=== PATIENT | male | born 1975 | race Caucasian/White ===

== ENCOUNTER 2023-05-13 15:21 | Emergency (ER) | payer OTHER, SELFPAY ==
[2023-05-13 16:04] VITALS: BP 131/95; PULSE 109; RESP 18; TEMP 36.4; O2SAT 98; BMI 24.4
--- NOTE | 2023-05-13 16:11 | CRLHL7_ITS ---
For Patients: As a result of the Century Cures Act, medical imaging exams and procedure reports are released immediately into your electronic medical record. You may view this report before your referring provider. If you have questions, please contact your health care provider. INDICATION: FALL 2 DAYS AGO, HX OF SEIZURES TECHNIQUE: CT head without contrast. COMPARISON: None. FINDINGS: Streak hardening artifact degrades fine detail evaluation. Right frontal encephalomalacia. Changes old craniotomy history of no intracranial hemorrhage. No discrete mass or mass effect. There is no midline shift. The basilar cisterns are patent. No hydrocephalus. The horn-white matter interface is otherwise preserved. No acute osseous abnormality. No extracalvarial soft tissue abnormality. The mastoid air cells are clear. The paranasal sinuses are well-aerated. The visualized portions of the orbits and globes are unremarkable. IMPRESSION: No acute intracranial process per unenhanced head CT. Please note that all CT scans at this facility use dose modulation, iterative reconstruction, and/or weight-based dosing when appropriate to reduce radiation dose to as low as reasonably achievable. Dictated by Corey Linn MD @ 05/13/2023 5:56:22 PM (Electronically Signed)
--- NOTE | 2023-05-13 16:54 | ED.GENADULT ---
HPI - General Adult General Chief complaint: Fall/Minor Trauma Stated complaint: seizure this morning Time Seen by Provider: 05/13/23 16:53 History of Present Illness HPI narrative: Patient reports 2.5 weeks of increase in seizure activity. Has had several falls due to this. Has communicated with Dr. Mata through [facility] who has recommended taking prescribed medications as usual as patient reports missing a couple doses recently but wanted him to have heat CT due to fall two days ago where he fell and hit head. Has bruising behind left ear and ringing and crackling in ear. 47-year-old man with history of epilepsy since childhood. 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 Accompanied by parents. Has been having increases in seizures lately. Has also had falls or and a couple of days ago resulted in falling and hitting his head. Reports that was recommended by neurologist to have CT imaging due to fall. He is not having any neck or back pain. He is seen by [facility]. Primary is a Dr. Mata. Says he is taking all medications. No new headaches. Often feels a little unsteady. No fevers. No visual disturbances otherwise. Poor sleep. Does admit to increased levels of stress/anxiety. Related Data Home Medications Medication Instructions Recorded Confirmed divalproex 500 mg tablet,extended 1,500 mg PO QPM 05/13/23 05/13/23 release 24 hr felbamate 600 mg tablet 600 mg PO .COMPLEX 05/13/23 05/13/23 lacosamide 100 mg tablet mg DIRECTED 05/13/23 Allergies Allergy/AdvReac Type Severity Reaction Status Date / Time amoxicillin Allergy Intermediate Unknown Verified 05/13/23 16:03 Review of Systems Status of ROS: Reports: 6 or more systems reviewed and unremarkable except as noted in History and below [facility] Medical History Seizure ?R56.9 - Unspecified convulsions (ICD-10) Social History Smoking Status: Never smoker How often do you have a drink containing alcohol: never AUDIT-C Alcohol total score: 0 Non-prescribed substance use: denies use Exam Narrative: Exam Narrative: Pleasant. NAD. Seems a little tired. Breathing easily. Cranial nerves 2-12 look to be intact. Accurate [id number]. Neck is supple nontender. Back also nontender. Heart in elevated rate but regular rhythm. Skin is warm and dry. There is a bruising behind his left ear consistent with traumatic impact. Some nasopharyngeal congestion and looks like a bubble in the left TM I think suggesting some fluid. Right TM unremarkable. No inflammation in either. Extremities are well perfused without edema. Extremities with good strength. On reassessment later I am in abrasion conversation and Gerry says ?here it comes ? at which point I witnessed conscious seizure-like activity lasting approximately a minute where head turned to left with saccadic eye movement. Able to engage in conversation during this time. No compromise of airway. Some mild spasming of the upper extremities and feet as well. This is apparently typical seizure-like activity. Const: Vital Signs, click to edit/add: Vital Signs - 24 hr 05/13/23 16:04 Temperature 97.6 F Pulse Rate [Pulse Oximeter] 109 H Respiratory Rate 18 Blood Pressure [Ri ght Upper Arm] 131/95 H Pulse Oximetry 98 Documenting provider has reviewed patient's vital signs: yes Course Vital Signs Vital signs: Initial Vital Signs Temperature 97.6 F 05/13/23 16:04 Temperature Source Temporal Artery Scan 05/13/23 16:04 Pulse Rate 109 H 05/13/23 16:04 Respiratory Rate 18 05/13/23 16:04 Blood Pressure 131/95 H 05/13/23 16:04 Blood Pressure Mean 107 H 05/13/23 16:04 Pulse Oximetry 98 05/13/23 16:04 Vital Signs Temperature 97.6 F 05/13/23 16:04 Pulse Rate 109 H 05/13/23 16:04 Respiratory Rate 18 05/13/23 16:04 Blood Pressure 131/95 H 05/13/23 16:04 Pulse Oximetry 98 05/13/23 16:04 Temperature 97.6 F 05/13/23 20:00 Pulse Rate 99 05/13/23 20:00 Respiratory Rate 18 05/13/23 20:00 Blood Pressure 125/85 05/13/23 20:00 Pulse Oximetry 98 05/13/23 20:00 Medications Administered Medications: Discontinued Medications Generic Name Dose Route Start Last Admin Trade Name Freq PRN Reason Stop Dose Admin Clonazepam 1 mg 05/13/23 19:34 05/13/23 20:08 Clonazepam 0.5 Mg Tablet PO 05/13/23 19:35 Not Given ONCE ONE Clonazepam 0.5 mg 05/13/23 19:34 05/13/23 20:00 Clonazepam 0.5 Mg Tablet PO 05/13/23 19:35 0.5 mg ONCE ONE Administration Medical Decision Making MDM Narrative Medical decision making narrative: Given seizure medications and potential effects on liver and kidney. I think should check electrolytes and renal function and liver function. Also scan head as recommended. Certainly could be new bleed or other changes intracranially that might precipitate increased seizure activity. Would not get levels of antiepileptics back at this time. Head CT reviewed by me looks to show large area of encephalomalacia.. No evidence of acute bleed or other swelling. Radiology over-read as below INDICATION: FALL 2 DAYS AGO, HX OF SEIZURES TECHNIQUE: CT head without contrast. COMPARISON: None. FINDINGS: Streak hardening artifact degrades fine detail evaluation. Right frontal encephalomalacia. Changes old craniotomy history of no intracranial hemorrhage. No discrete mass or mass effect. There is no midline shift. The basilar cisterns are patent. No hydrocephalus. The horn-white matter interface is otherwise preserved. No acute osseous abnormality. No extracalvarial soft tissue abnormality. The mastoid air cells are clear. The paranasal sinuses are well-aerated. The visualized portions of the orbits and globes are unremarkable. IMPRESSION: No acute intracranial process per unenhanced head CT. I did discuss these findings with shipbuilding draftsperson for [facility]. It sounds as though there are some assumptions about medication dosing that Mr. Ruiz is not doing. I do not believe he has increased his lacosamide as recommended. And was revealed later in conversation he may not actually be taking one of the medications. He does however have clonazepam available. Does not sound as though he has never actually used it. After discussion I did order dose here. We discussed mechanisms/expectations of action. I believe then he declined ultimately to take it. Monitored without further event in the emergency department. Recommending close follow-up with [facility] and full discussion of cares and expectations. Send out antiepileptic levels are pending. See patient discharge plan Medical Records Medical records reviewed: Yes I reviewed the patient's medical records Lab Data Lab results reviewed: Yes I reviewed the patient's lab results Labs: Lab Results 05/13/23 05/13/23 05/13/23 Range/Units 17:25 17:25 17:25 WBC 9.60 (4.50-11.00) K/uL RBC 4.02 L (4.30-5.90) m/uL Hgb 13.3 L (13.5-17.5) gm/dL Hct 40.7 (37.0-53.0) % MCV 101 H (80-100) fL MCH 33 (26-34) pg MCHC 33 (32-36) gm/dL RDW Coeff of Veronica 14.2 (11.5-15.5) % Plt Count 332 (140-440) K/uL Neut % (Auto) 77.5 H (42.0-72.0) % Lymph % (Auto) 12.5 L (20-44) % Monroe % (Auto) 9.7 (0.0-11.0) % Eos % (Auto) 0.0 (0.0-7.0) % Baso % (Auto) 0.2 (0.0-3.0) % Neut # (Auto) 7.40 H (1.7-7.0) K/uL Lymph # (Auto) 1.20 (0.90-2.90) K/uL Monroe # (Auto) 0.90 (0.00-0.90) K/UL Eos # (Auto) 0.00 (0.00-0.50) K/uL Baso # (Auto) 0.02 (0.00-0.30) K/uL Abs Immat Gran (auto) 0.01 (0.00-0.30) K/uL Imm/Tot Granulo (auto) 0.1 % Sodium 140 (135-149) mmol/L Potassium 4.6 (3.6-5.1) mmol/L Chloride 102 (96-114) mmol/L Carbon Dioxide 28 (20-32) mmol/L Anion Gap 10 (7-15) mEq/L BUN 11 (5-24) mg/dL Creatinine 0.7 (0.5-1.5) mg/dL Estimated Creat Clear 147.43 Estimated GFR 114 ml/min Glucose 94 (60-115) mg/dL Calcium 10.1 (8.4-10.6) mg/dL Total Bilirubin 0.5 Cancelled (0.1-1.5) mg/dL Direct Bilirubin 0.1 Cancelled (0.0-0.5) mg/dL AST 28 (12-35) U/L ALT (4-50) U/L Alkaline Phosphatase (40-150) U/L C-Reactive Protein (0.5-1.0) mg/dL Total Protein (6.0-8.3) g/dL Albumin (3.3-5.0) g/dL Free/Total Valproic Acd 05/13/23 05/13/23 05/13/23 Range/Units 17:25 17:25 17:25 WBC (4.50-11.00) K/uL RBC (4.30-5.90) m/uL Hgb (13.5-17.5) gm/dL Hct (37.0-53.0) % MCV (80-100) fL MCH (26-34) pg MCHC (32-36) gm/dL RDW Coeff of Veronica (11.5-15.5) % Plt Count (140-440) K/uL Neut % (Auto) (42.0-72.0) % Lymph % (Auto) (20-44) % Monroe % (Auto) (0.0-11.0) % Eos % (Auto) (0.0-7.0) % Baso % (Auto) (0.0-3.0) % Neut # (Auto) (1.7-7.0) K/uL Lymph # (Auto) (0.90-2.90) K/uL Monroe # (Auto) (0.00-0.90) K/UL Eos # (Auto) (0.00-0.50) K/uL Baso # (Auto) (0.00-0.30) K/uL Abs Immat Gran (auto) (0.00-0.30) K/uL Imm/Tot Granulo (auto) % Sodium (135-149) mmol/L Potassium (3.6-5.1) mmol/L Chloride (96-114) mmol/L Carbon Dioxide (20-32) mmol/L Anion Gap (7-15) mEq/L BUN (5-24) mg/dL Creatinine (0.5-1.5) mg/dL Estimated Creat Clear Estimated GFR ml/min Glucose (60-115) mg/dL Calcium (8.4-10.6) mg/dL Total Bilirubin (0.1-1.5) mg/dL Direct Bilirubin (0.0-0.5) mg/dL AST Cancelled (12-35) U/L ALT 15 Cancelled (4-50) U/L Alkaline Phosphatase 87 Cancelled (40-150) U/L C-Reactive Protein 1.0 (0.5-1.0) mg/dL Total Protein 8.3 (6.0-8.3) g/dL Albumin (3.3-5.0) g/dL Free/Total Valproic Acd 05/13/23 05/13/23 Range/Units 17:25 17:25 WBC (4.50-11.00) K/uL RBC (4.30-5.90) m/uL Hgb (13.5-17.5) gm/dL Hct (37.0-53.0) % MCV (80-100) fL MCH (26-34) pg MCHC (32-36) gm/dL RDW Coeff of Veronica (11.5-15.5) % Plt Count (140-440) K/uL Neut % (Auto) (42.0-72.0) % Lymph % (Auto) (20-44) % Monroe % (Auto) (0.0-11.0) % Eos % (Auto) (0.0-7.0) % Baso % (Auto) (0.0-3.0) % Neut # (Auto) (1.7-7.0) K/uL Lymph # (Auto) (0.90-2.90) K/uL Monroe # (Auto) (0.00-0.90) K/UL Eos # (Auto) (0.00-0.50) K/uL Baso # (Auto) (0.00-0.30) K/uL Abs Immat Gran (auto) (0.00-0.30) K/uL Imm/Tot Granulo (auto) % Sodium (135-149) mmol/L Potassium (3.6-5.1) mmol/L Chloride (96-114) mmol/L Carbon Dioxide (20-32) mmol/L Anion Gap (7-15) mEq/L BUN (5-24) mg/dL Creatinine (0.5-1.5) mg/dL Estimated Creat Clear Estimated GFR ml/min Glucose (60-115) mg/dL Calcium (8.4-10.6) mg/dL Total Bilirubin (0.1-1.5) mg/dL Direct Bilirubin (0.0-0.5) mg/dL AST (12-35) U/L ALT (4-50) U/L Alkaline Phosphatase (40-150) U/L C-Reactive Protein (0.5-1.0) mg/dL Total Protein Cancelled (6.0-8.3) g/dL Albumin 4.7 Cancelled (3.3-5.0) g/dL Free/Total Valproic Acd See Scanned Report Discharge Plan Discharge Clinical Impression: Breakthrough seizure, Seizure disorder Patient Disposition: Home w/ Parent or Adult Condition: Stable Additional Instructions: I realize we will not see effect of the clonazepam here in the emergency department. If you need to, it would be okay to take another of your clonazepam tabs yet this evening. They do have on-call available through [facility]. You would be welcome to call them tomorrow to discuss further but per my conversation with them, I would anticipate them reaching out to you by the middle of this coming week to schedule a follow-up appointment sooner than your pending July appointment. Do consider discussing taking additional medication or other treatment options. Use clonazepam if you need to for breakthrough as prescribed. Return for persistent seizure. Laboratory levels of divalproex, felbamate and lacosamide are pending here. I would anticipate about a 2 day turn around for lacosamide and divalproex and 4-5 days for felbamate. You should be able to access my chart for these levels. We will also try to fax results to [facility]. Prescriptions: No Action felbamate 600 mg tablet 600 mg PO .COMPLEX Rx Instructions: 600 mg orally 2 tabs in AM, 1 tab in afternoon, 2.5 tabs before bed; divalproex 500 mg tablet extended release 24 hr 1,500 mg PO QPM lacosamide 100 mg tablet DIRECTED Follow Up/Referrals: Jasbir Arriaza MD [Referring] - Stand Alone Forms: [facility] Info Instructions
[2023-05-13 17:36] LABS: Basophils Absolute Auto 0.02 K/uL (0.00-0.30); Basophils Percent Auto 0.2 % (0.0-3.0); Hematocrit 40.7 % (37.0-53.0); Hemoglobin* 13.3 gm/dL (13.5-17.5); Immature Granulocytes Abs Auto 0.01 K/uL (0.00-0.30); Immature Granulocytes Pct Auto 0.1 %; Lymphocytes Percent Auto 12.5 % (20-44); Mean Corpuscular HGB Conc 33 gm/dL (32-36); Mean Corpuscular Hemoglobin 33 pg (26-34); Mean Corpuscular Volume 101 fL (80-100); Monocytes Percent Auto 9.7 % (0.0-11.0); Neutrophils Percent Auto 77.5 % (42.0-72.0); Platelet Count* 332 K/uL (140-440); RDW Coefficient of Variation % 14.2 % (11.5-15.5); Red Blood Count 4.02 m/uL (4.30-5.90)
[2023-05-13 17:53] LABS: Slide Review Reflex No
[2023-05-13 17:54] LABS: Albumin* 4.7 g/dL (3.3-5.0); Chloride* 102 mmol/L (96-114)
[2023-05-13 17:55] LABS: Potassium* 4.6 mmol/L (3.6-5.1); Sodium* 140 mmol/L (135-149)
[2023-05-13 17:57] LABS: Creatinine* 0.7 mg/dL (0.5-1.5); Est. Creatinine Clearance* 147.43; Estimated Glomerular Filt Rate 114 ml/min
[2023-05-13 17:58] LABS: Alanine Aminotransferase* 15 U/L (4-50); Alkaline Phosphatase* 87 U/L (40-150); Anion Gap 10 mEq/L (7-15); Aspartate Amino Transferase* 28 U/L (12-35); Bilirubin Direct* 0.1 mg/dL (0.0-0.5); Bilirubin Total* 0.5 mg/dL (0.1-1.5); Blood Urea Nitrogen* 11 mg/dL (5-24); Calcium* 10.1 mg/dL (8.4-10.6); Carbon Dioxide* 28 mmol/L (20-32); Glucose* 94 mg/dL (60-115); Total Protein* 8.3 g/dL (6.0-8.3)
--- OUTSIDE RECORDS SUMMARY | 2023-05-13 18:58 | XMS_ITS | Patient Health Record ---
Author Name Unknown Organization Unknown Care Team Providers Care Ax Survey Worker Name Role Phone Dre Cisneros MD Primary Care Provider Unavailab Farida Crump Unavailable [phone] Ronak Bateman MD Unavailable Unavailable ALLERGIES Allergen (clinical drug ingredient) Drug/Non Drug Allergy documented on EMR Reaction Allergy Type Onset Date Status amoxicillin Amoxicillin Unknown Drug Allergy Act richard RESULTS Component Value Reference Range Notes COMPREHENSIVE METABOLIC PANE L Reviewed date:08/27/2022 02:31:21 PM Interpretation: Performing Lab: Notes/Report: GLUCOSE UREA NITROGEN (BUN) CREATININE 0.71 eGFR NON-AFR. CITIZEN OF [place] eGFR BUN/CREATININE RATIO SODIUM 130 POTASSIUM CHLORIDE CARBON DIOXIDE CALCIUM PROTEIN, TOTAL ALBUMIN GLOBULIN ALBUMIN/GLOBULIN RATIO BILIRUBIN, TOTAL ALKALINE PHOSPHATASE 45 AST 44 ALT 18 EGFR CBC (INCLUDES DIFF/PLT) Reviewed date:08/27/2022 02:30:25 PM Interpretation: Performing Lab: Notes/Report: ABSOLUTE BASOPHILS ABSOLUTE EOSINOPHILS ABSOLUTE LYMPHOCYTES ABSOLUTE METAMYELOCYTES ABSOLUTE MONOCYTES ABSOLUTE PMN,ADULT BASOPHILS BLASTS CBC MORPHOLOGY COMMENT(S) EOSINOPHILS HEMATOCRIT HEMOGLOBIN IMMATURE GRAN IMMATURE GRAN ABSOLUTE LYMPHOCYTES MCH MCHC MCV METAMYELOCYTES MONOCYTES MORPHOLOGY MPV MYELOCYTES OTHER CELLS PLATELET COUNT PLATELET ESTIMATION PMN, ADULT PROMYELOCYTES RDW RED BLOOD CELL COUNT WHITE BLOOD CELL COUNT WHITE BLOOD CELL COUNT 3.7 RED BLOOD CELL COUNT HEMOGLOBIN 14.2 HEMATOCRIT MCV MCH MCHC RDW PLATELET COUNT 253 NEUTROPHILS BAND NEUTROPHILS ABSOLUTE BAND NEUTROPHILS METAMYELOCYTES ABSOLUTE METAMYELOCYTES MYELOCYTES ABSOLUTE MYELOCYTES PROMYELOCYTES ABSOLUTE PROMYELOCYTES ABSOLUTE NEUTROPHILS 1.9 LYMPHOCYTES REACTIVE LYMPHOCYTES ABSOLUTE LYMPHOCYTES MONOCYTES ABSOLUTE MONOCYTES EOSINOPHILS ABSOLUTE EOSINOPHILS BASOPHILS ABSOLUTE BASOPHILS BLASTS ABSOLUTE BLASTS NUCLEATED RBC ABSOLUTE NUCLEATED RBC COMMENT(S) MPV VALPROIC ACID Reviewed date:08/27/2022 02:32:10 PM Interpretation: Performing Lab: Notes/Report: VALPROIC ACID 105.0 FELBAMATE Reviewed date:08/27/2022 02:26:47 PM Interpretation: Performing Lab: Notes/Report: FELBAMATE 104 LACOSAMIDE, LC/MS/MS Reviewed date:08/27/2022 02:27:28 PM Interpretation: Performing Lab: Notes/Report: LACOSAMIDE, LC/MS/MS 6.4 REASON FOR REFERRAL No Information MEDICATIONS Medication SIG (Take, Route, Frequency, Duration) Notes Start Date End Date Status Vimpat 100 MG 1 tablet in the morning, 2 tablets in the evening orally as directed for 30 days Active Fiber - as directed Orally A ctive clonazePAM 0.5 MG 1 tablet sublinguall y PRN seizure lasting longer than 5 minutes. If seizure continues another 5 minutes, repeat dose. Max of 2 tablets within 24hrs 08/17/2021 Active Felbatol 600 mg 2 tablets am, 1 tablets midday and 2.5 tablets at bedtime Orally as directed for 30 day(s) Active Divalproex Sodium ER 500 3 tablets Orally at bedtime (q hs) for 30 days Active Briviact 100 MG 07/09/22: 0.5 tablet (50mg) BID x 1 week, then 1 tablet (100mg) BID x 1 week, then 1.5 tabs (150mg) BID x 1 week, then 2 tabs (200mg) Orally twice a day (bid) for 30 days 07/09/2022: refill not sent in because there is already supply at pharmacy awaiting pickup. 04/22/2022 Active VITAL SIGNS Height 73 in 07/09/2022 07/09/2022: Vit als deferred due to telemedicine visit. Encounters Encounter Location Date Provider Diagnosis [facility] [address] [place] [address] 07/09/2022 Farida Lema Other skilled nursing (current) drug therapy Z79.899 ; Localization-related (focal) (partial) idiopathic epilepsy and epileptic syndromes with seizures of localized onset, intractable, without status epilepticus G40.019 ; Counseling, unspecified Z71.9 ; Cannabis use, unspecified, uncomplicated F12.90 ; Phobic anxiety disorder, unspecified F40.9 and Stress, not elsewhere classified Z73.3 [facility] [address] [place] [address] 05/17/2022 Kinsk Sahaya [facility] [address] [place] [address] 05/17/2022 [place] Sahaya [facility] [address] [place] [address] 05/24/2022 K[place] Sahaya Other skilled nursing (current) drug therapy Z79.899 [facility] [address] [place] [address] 07/09/2022 K[place] Sahaya Other extermination inspector (current) drug therapy Z79.899 and Localization-related (focal) (partial) idiopathic epilepsy and epileptic syndromes with seizures of localized onset, intractable, without status epilepticus G40.019 [facility] [address] [facility] [place] [address] 07/14/2022 [place] Sahaya [facility] [address] [place] [address] 07/21[facility]22 [facility] [address] [place] [address] 08/05/2022 [place] Sahaya [facility] [address] [place] [address] 08/11/2022 K[place] Sahaya Other skilled nursing (current) drug therapy Z79.899 and Localization-related (focal) (partial) idiopathic epilepsy and epileptic syndromes with seizures of localized onset, intractable, without status epilepticus G40.019 [facility] [address] [place] [address] 08/16/2022 [place] Sahaya [facility] [address] [place] [address] 08/18/2022 [place] Sahaya [facility] [address] [place] [address] 08/23/2022 [place] Sahaya [facility] [address] [place] [address] 08/26/2022 [place] Sahaya [facility] [address] [place] [address] 09/25/2022 [place] Sahaya [facility] [address] [place] [address] 09/28/2022 [place] Sahaya Other skilled nursing (current) drug therapy Z79.899 [facility] [address] [place] [address] 10/26/2022 [place] Sahaya [facility] [address] [place] [address] 11/02/2022 K[place] Sahaya Other extermination inspector (current) drug therapy Z79.899 [facility] [address] [place] [address] 11/25/2022 [place] Sahaya [facility] [address] [place] [address] 12/03/2022 [place] Sahaya [facility] [address] [place] [address] 12/17/2022 [place] Sahaya [facility] [address] [place] [address] 02/10/2023 [place] Sahaya [facility] [address] [place] [address] 03/04/2023 K[place] Sahaya Other extermination inspector (current) drug therapy Z79.899 [facility] [address] [place] [address] 05/12/2023 [place] Sahaya [facility] [address] [place] [address] 05/12/2023 Kinsh[place] Sahaya ASSESSMENTS Encounter Date Diagnosis Assessment Notes Treatment Notes Treatment Clinical Notes 05/24/2022 Other extermination inspector (current) drug therapy (ICD-10 - Z79.899) 07/09/2022 Other extermination inspector (current) drug therapy (ICD-10 - Z79.899) 07/09/2022 Other extermination inspector (current) drug therapy (ICD-10 - Z79.899) 09/28/2022 Other extermination inspector (current) drug therapy (ICD-10 - Z79.899) 11/02/2022 Other extermination inspector (current) drug therapy (ICD-10 - Z79.899) 03/04/2023 Other skilled nursing (current) drug therapy (ICD-10 - Z79.899) 08/11/2022 Other skilled nursing (current) drug therapy (ICD-10 - Z79.899) 07/09/2022 Localization-related (focal) (partial) idiopathic epilepsy and epileptic syndromes with seizures of localized onset, intractable, without status epilepticus (ICD-10 - G40.019) 07/09/2022 Localization-related (focal) (partial) idiopathic epilepsy and epileptic syndromes with seizures of localized onset, intractable, without status epilepticus (ICD-10 - G40.019) 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 He has undergone RIGHT partial frontal lobectomy in 1988 at [facility], and has continued to have frequent seizures characterized by focal aware brief motor seizures with left-sided head turn and infrequent generalized convulsions. He continues on multiple antiseizure medications and has daily events. With his current medication regimen, he feels that felbamate has been most effective. Indeed after recent attempt to reduce felbamate dose due to perceived adverse effect, he had increased occurrence of seizures which returned back to baseline after the felbamate was resumed at the prior dose. Valproic acid has been the medication for a long timeframe. He feels that lacosamide may not have been additionally helpful and has given him adverse effects. He is interested in trying alternate antiseizure medication, but is not interested in adding on a fourth antiseizure medication. I had recently advised adding brivaracetam which she did not do because of the above reason. I have advised to taper off lacosamide by 100 mg every 7 days till completely off. He will also start brivaracetam 100 mg tablet, half tablet twice daily for 7 days and increase by such every 7 days to reach the target dose of 200 mg twice daily. I cannot Dr. Lauren have previously mentioned epilepsy surgery to him and he has been disinterested. Today he expressed some preliminary interest in VNS. It stems from the fact that his cousin who has epilepsy [maternal cousin, no other family member] has undergone VNS placement and has noted significant improvement. At the same time he is not to the extent that he will want to start the surgical evaluation. I discussed this in detail with the patient. I recommended a complete surgical evaluation and consideration of all available options including VNS. He ultimately decided that he wanted to pursue medication adjustment before considering surgical evaluation. Please also see below regarding his fear/phobia of surgery and steps to address it. I feel that addressing his fear or phobia of surgery would be the most important step before epilepsy surgery evaluation can be considered. I will get CBC, CMP, ammonia, reticulocyte count, drug levels. Alternative treatment options can include perampanel, pregabalin, eslicarbazepine, zonisamide, topiramate, cenobamate In addition to above, I also provided him prescription of Clonazepam 0.5 mg orally dissolvable tablet for when necessary use if he has more than 10 focal aware seizure in a single day, any seizure lasting 5 minutes or more, or any generalized convulsion. The dose may be repeated in 15 minutes if needed. Not more than 2 tablets in a day. 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 He has recently forgone Kidney stone surgery and suffered through the pain of same rather than undergoing surgery. He relates it to childhood right frontal lobectomy as being a traumatic experience. I feel this is a strong impediment in his quality of life, his ability to get appropriate health care, and also epilepsy surgery evaluation and consideration. I feel epilepsy surgery would be extremely helpful for him but before we pursue it, he should be treated for his phobia. I will set up care with psychology to address the same. The patient is agreeable. 07/09/2022 Stress, not elsewhere classified (ICD-10 - Z73.3) 07/09/2022 Other Services today were provided via telemedicine. During the visit, the patient, Gerry Ruiz, was at home in [place], [place], and the provider, Dr. Farida Lema, was located in [place], [place]. The televisit started at 1136AM and ended at 1200PM, for a duration of 24 minutes. 07/09/2022 Other VISIT SUMMARY: 1. MEDS: Continue Felbatol (felbamate) 1200mg in the morning, 600mg midday, and 1500mg in the evening, and continue Depakote ER 1500mg at bedtime. START Briviact as follows, using 100mg tablets (has already been sent to your pharmacy, please command post superintendent as soon as possible!) WEEK 1: 50mg (0.5 tablet) twice daily. WEEK 2: 100mg (1 tablet) twice daily. WEEK 3: 150mg (1.5 tablet) twice daily. WEEKS 4 and onward: 200mg (2 tablets) twice daily. DISCONTINUE Vimpat (lacosamide) as follows: WEEK 1: 100mg twice daily. WEEK 2: 100mg once daily. WEEKS 3 and onward: STOP VIMPAT. REFILLS: We will authorize refills for felbamate and depakote at your pharmacy. Briviact has already been sent in. You should have enough Vimpat on hand to complete the taper schedule, but if you don't, let the pharmacy know and they will contact us for a refill authorization. Let the pharmacy know when you need refills, and do not wait until you are almost out of medication, as it may take 7-10 days to process your request. 2. LABS/DIAGNOSTIC IMAGING: A lab order has been sent to [facility]. Please have your labs checked at your earliest convenience. An appointment may be needed; please contact the clinic to confirm. If possible, have your blood drawn at trough, which means first thing in the morning before taking your anti-seizure medication, or at least six hours after your last dose was taken. Do not withhold your medication longer than one hour past your usual dosing time to have this done. You do NOT need to fast for this test. If you have not heard from us with the results within 5-7 business days of having your blood drawn, please let us know so we can make sure we receive the results from the lab. 3. FOLLOW-UP: Return to see Dr. Lema in 3-5 months (September-November 2022). We do have virtual appointments available if appropriate, or can see you in-person at our [facility]. Call [phone] to schedule this appointment. Dr. Lema would like you to see one of our psychologists to help address your fear of surgery. Our photogrammetric engineer, Floresita, will contact you to set this up. In the meantime, please contact us with any further updates, questions, or concerns. Thank you for choosing the [facility]! PLAN OF TREATMENT Pending Test Test Name Order Date Alkaline Phosphatase, S 07/05/2011 Reticulocyte Count 07/05/2011 Vitamin D, 1,25 Dihydroxy 07/05/2011 SGPT (ALT) 07/05/2011 CBC With Differential/Platelet 2 Ammonia, Plasma 07/05/2011 Felbamate (Felbatol(R)), Serum 2 Valproic Acid (Depakote),S 07/05/2011 Lacosamide (Vimpat) 04/26/2017 VALPROIC ACID, TOTAL & FREE 09/08/2015 COMPREHENSIVE METABOLIC PANEL 04/26/2017 COMPREHENSIVE METABOLIC PANEL 07/02/2015 COMPREHENSIVE METABOLIC PANEL 08/18/2018 COMPREHENSIVE METABOLIC PANEL 04/21/2020 CREATININE 09/08/2015 CREATININE 09/08/2015 AST 09/08/2015 AST 09/08/2015 ALT 09/08/2015 ALT 09/08/2015 CBC (INCLUDES DIFF/PLT) 09/08/2015 CBC (INCLUDES DIFF/PLT) 07/02/2015 CBC (INCLUDES DIFF/PLT) 04/26/2017 CBC (INCLUDES DIFF/PLT) 09/08/2015 CBC (INCLUDES DIFF/PLT) 04/21/2020 CBC (INCLUDES DIFF/PLT) 08/04/2016 CBC (INCLUDES DIFF/PLT) 08/18/2018 RETICULOCYTE COUNT 09/08/2015 RETICULOCYTE COUNT 08/04/2016 RETICULOCYTE COUNT 07/02/2015 RETICULOCYTE COUNT 09/08/2015 AMMONIA (P) 09/08/2015 AMMONIA (P) 07/02/2015 AMMONIA (P) 08/18/2018 VALPROIC ACID 08/18/2018 VALPROIC ACID 07/02/2015 VALPROIC ACID 09/08/2015 VALPROIC ACID 04/26/2017 FELBAMATE 04/26/2017 FELBAMATE 09/08/2015 FELBAMATE 09/08/2015 FELBAMATE 07/02/2015 FELBAMATE 08/18/2018 LACOSAMIDE, LC/MS/MS 08/18/2018 LACOSAMIDE, LC/MS/MS 09/08/2015 LACOSAMIDE, LC/MS/MS 09/08/2015 Future Test Test Name Order Date COMPREHENSIVE METABOLIC PANEL 08/11/2022 CBC (INCLUDES DIFF/PLT) 08/11/2022 RETICULOCYTE COUNT 08/11/2022 AMMONIA (P) 08/11/2022 FELBAMATE 08/11/2022 Next Appt Details Provider Name:Farida Lema , 07/26/2023 02:30:00 PM, [address] [facility], [place], [address], Insurance Providers Payer Name Payer Address Payer Phone Subscriber Number Group Number Insured Name Patient Relationship to Insured Coverage Start Date Coverage End Date [employer]ESS [employer]ILITY [place] [address] [address] [place] [address] [phone] [id number] Joseph Gerry Self - patient is the insured 2 MEDICAL (GENERAL) HISTORY Medical History History ICD Code Intractable epilepsy History of polysubstance abuse. History of depression. Localization-related (focal) (partial) symptomatic epilepsy and epileptic syndromes with complex partial seizures, intractable, with status epilepticus Depressive disorder, not elsewhere class ified 311 Surgical History Surgery Date(Month/Year) Right frontal topectomy and lobectomy. 1 989 Flexible cystoscopy, digital rectal exam 06/05/2020 Hospitalization History Reason Date(Month/Year) Multiple stays for epilepsy evalution/lazar rgery ED [facility] Ureterolithiasis; Dysuria 05/24
--- OUTSIDE RECORDS SUMMARY | 2023-05-13 18:58 | XMS_ITS | Continuity of Care Document ---
Author Name Unknown Organization [facility] Address [address] [address] [place] [address] Phone Care Team Providers Care Marketing Proposal Coordinator Name Role Phone Rodolfo Arce MD Unavailable Unavailable Medications Medication Instructions Dosage Effective Dates (start - stop) Status Comments Miralax 17 gram/dose oral powder take (17G) by oral route every day mixed with 8 oz. water, juice, soda, coffee or tea 17 G - Active Depakote 500 mg tablet,delayed release take 3 tablet by oral route every day 1500 MG - Active Vimpat 100 mg tablet take 1 tablet by or al route 2 times every day 100 MG - Active Felbatol 600 mg tablet take 1 tablet by oral route 2 times every day 2 in the morning 2.5 in afternoon 600 MG - Active Fiber (dextrin) 3 gram/3.5 gram oral powder - Active Procedures Procedure Date New Level 4 Advance Directives Directive Yes / No Effective Date File Name No Information Encounters Encounter Description Practice Location Reason(s) For Visit Diagnoses Date Provider Providers Copied on Encounter [facility], [address] [address], [place], [place], [id number], [place] tel:[phone] [facility] No Information 2 Yazmin Reynolds. [address] [facility] [facility] [address], [place], [place], [address] , [place]. tel:[phone] New Level 4 [facility], [address] [address], [place], [place], [address], [place] tel:[phone] [facility] GI Symptoms or Concerns (chief complaint) Change in bowel habitsLower abdominal pain 1 Wilmer Mason. [address] [facility] [facility] [address], [place], [address] , [place]. tel:[phone] Referring Provider: Dre Cisneros [place] [address], [address] [place], [address]. tel:[phone] [facility], [address] [address], [place], [place], [address], [place] tel:[phone] [facility] No Information 1 Yazmin Reynolds. [address] [facility] [facility] [address], [place], [address] , [place]. tel:[phone] Family History Family Member Type Diagnosis Age At Onset Father Problem (finding) malignant neoplasm of l darryl Father Problem (finding) alcoholism Immunizations Vaccine Date Status Comments SARS-COV-2 (COVID-19) vaccin e, mRNA, spike protein, LNP, preservative free, 30 mcg/0.3mL dose administered Note: [facility] bi-direct ional interface ; Source: Other Registry SARS-COV-2 (COVID-19) vaccin e, mRNA, spike protein, LNP, preservative free, 30 mcg/0.3mL dose administered Note: [facility] bi-direct ional interface ; Source: Other Registry tetanus toxoid, reduced diphtheria toxoid, and acellular pertussis vaccine, adsorbed administered Note: [facility] b i-directional interface ; Source: Other Registry diphtheria, tetanus toxoids and acellular pertussis vaccine administered Note: [facility] b i-directional interface ; Source: Other Registry Payers Payer name Insurance type Covered republican ID Authoriza tion(s) [employer] [id number] Social History Type Description Quantity Date Captured Comments Sex Male Smoking Status No Information Chief Complaint And Reason For Visit No Information Reason For Referral Reason For Referral No Information Plan Of Treatment Date Type Action Status Referral Ordered: Colonoscopy Appointment date/timeframe: 06/19/2021 ordered Referral Ordered: Celiac: TTG IgA + Total IgA Appointment date/timeframe: First Available ordered Referral Ordered: Thyroid [place] Profile Appointment date/timeframe: First Available ordered History Of Present Illness Encounter Date Complaint History Of Prese nt Illness GI Symptoms or Concerns This tigist farias is a pleasant 45-year-old male who presents as a self-referral for evaluation of constipation and lower abdominal pain. He consents to a virtual visit and nobody else is participating. Patient reports constipation and lower abdominal cramping that worsened earlier this year. In July 2020 he was experiencing significant lower abdominal pain and presented to the ER as he was concerned about kidney stones. He tells me that a CT scan showed constipation but was otherwise normal, although I do not have these records. He was advised to start taking MiraLax which did seem to help with the constipation. In December 2020 he presented to the ER again with upper abdominal pain and was felt that he may have an upper GI process. He was prescribed omeprazole and famotidine for several weeks and those symptoms have since resolved. Currently patient is moving his bowels every 1-2 days with the use of fiber in the morning and MiraLax in the evening. Previously he was movin Functional Status Date Functional Assessmen t No Information Instructions Date Instruction Additional Infor mation No Information Assessments Type Assessment Date No Information Patient Care Teams Name Effective Dates (start - stop) Status Members No Information
[2023-05-13 20:00] VITALS: BP 125/85; PULSE 99; RESP 18; TEMP 36.4; O2SAT 98
[2023-05-13] MEDS: clonazePAM 0.5 MG TABLET PO (20:00)
== END 2023-05-13 20:05 | disposition home or self-care (01) ==
PROVIDERS: Emergency Provider Family Medicine; PCP Family Medicine
DX: G40.909 Epilepsy, unspecified, not intractable, without status epilepticus (principal)
CPT/HCPCS: 36415; 70450; 80048; 80076; 80164; 80165; 80167; 80235; 85025; 86140; 99284; A9270